=== PATIENT | female | born 1960 | race Caucasian/White ===

== ENCOUNTER 2018-02-22 08:49 | Emergency (ER) | payer OTHER ==
[2018-02-22 09:09] VITALS: BP 159/97
--- NOTE | 2018-02-22 09:24 | UC ---
Upper Extremity HPI - HPI Summary HPI Summary: This is Pennie hassan, documenting for attending David Herrera M.D. Pt is a 57 y/o F who presents to [facility] c/o right shoulder pain, located from her shoulder blade down to the elbow. Sx have been present since February 01 (3 weeks ago) after pulling down carry luggage that was in the above-head compartment on a plane on the day prior. Pt reports that she "let it jerk my arm " and that the pain has been present since that day. On February 12 (10 days ago) she was seen by [facility] where she did not have any imaging and was given Flexeril 5 mg (didn't help much) and Naproxen 500 mg ("takes the edge off "). Reports that her symptoms feel somewhat better today than they did on 02/12, though pain becomes much worse after work. 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 On triage, pain is mild ranked 1/10. - History of Current Complaint Chief Complaint: UCUpperExtremity Stated Complaint: SHOULDER COMPLAINT Time Seen by Provider: 02/22/18 09:17 Hx Obtained From: Patient Onset/Duration: Lasting Weeks - 3 weeks, Still Present Severity Currently: Mild Pain Intensity: 1 Pain Scale Used: 0-10 Numeric Location Of Pain: Is Discrete @ - R shoulder to right elbow Character: Burning Alleviating Factor(s): Other: - Medication Associated Signs And Symptoms: Positive: Negative - Allergies/Home Medications Allergies/Adverse Reactions: Allergies Allergy/AdvReac Type Severity Reaction Status Date / Time No Known Allergies Allergy Verified 02/22/18 09:10 PMH/Surg Hx/FS Hx/Imm Hx - Additional Past Medical History Additional PMH: NEGATIVE PMHx: HTN, CAD, DM - Surgical History Surgical History: None - Family History Known Family History: Positive: Hypertension Negative: Diabetes - Social History Alcohol Use: Rare Substance Use Type: None Smoking Status (MU): Never Smoked Tobacco Review of Systems Constitutional: Negative Skin: Negative Eyes: Negative ENT: Negative Respiratory: Negative Cardiovascular: Negative Gastrointestinal: Negative Genitourinary: Negative Motor: Negative Neurovascular: Negative Musculoskeletal: Arthralgia - R shoulder to right elbow pain Neurological: Negative Psychological: Negative All Other Systems Reviewed And Are Negative: Yes Physical Exam - Summary Physical Exam Summary: General: well-appearing, no pain distress Skin: warm, color reflects adequate perfusion, dry Head: normal Eyes: EOMI, HOMER ENT: normal Neck: supple, nontender Respiratory: CTA, breath sounds present Cardiovascular: RRR Musculoskeletal: Tender to palpation at the right shoulder joint with good pulses and no sensation deficits, hand, wrist, elbow, and shoulder strength 5/5 bilaterally, extension is 170 degrees bilaterally but with complaints of pain in the R shoulder, abduction is 160 degrees bilaterally with complaints of pain in the R shoulder, and internal rotation on the left was at T1, on the right side she was unable Neurological: sensory/motor intact, A&O x3 Psychological: affect/mood appropriate Triage Information Reviewed: Yes Vital Signs: Initial Vital Signs Temp 98.9 F 02/22/18 09:03 Pulse 86 02/22/18 09:03 Resp 12 02/22/18 09:03 BP 159/97 02/22/18 09:03 Pulse Ox 100 02/22/18 09:03 Vital Signs Reviewed: Yes Diagnostics - Radiology Shoulder XR Xray Interpretation: No Acute Changes - Normal radiograph of the right shoulder. If the patient's symptoms persist, follow-up imaging is recommended. Physician reviewed this report. Radiology Interpretation Completed By: Radiologist Upper Extremity Course/Dx - Course Course Of Treatment: Medications reviewed. Allergies noted. POSSIBLE ROTATOR CUFF INJURY. F/U SPORTS MEDICINE/ORTHOPEDICS; RECHECK SOONER IF WORSE. - Differential Dx/Diagnosis Provider Diagnoses: RIGHT SHOULDER STRAIN/PAIN Discharge - Sign-Out/Discharge Documenting (check all that apply): Patient Departure - Discharge - Discharge Plan Condition: Stable Disposition: HOME Prescriptions: Cyclobenzaprine (NF) [Cyclobenzaprine 5 MG (NF)] 7.5 mg PO TID PRN #30 tab PRN Reason: Pain traMADol TAB* [Ultram*] 50 mg PO Q6HR PRN #20 tab MDD 4 PRN Reason: Pain Patient Education Materials: Shoulder Sprain (ED) Referrals: Ignacio Kaufman [Medical Doctor] - [place] MD [Medical Doctor] - Muriel Antony MD [Primary Care Provider] - Additional Instructions: FOLLOW UP WITH YOUR PRIMARY CARE DOCTOR AND SPORTS MEDICINE. GET RECHECKED FOR ANY WORSENING OF YOUR CONDITION OR QUESTIONS OR CONCERNS. - Billing Disposition and Condition Condition: STABLE Disposition: Home
--- NOTE | 2018-02-22 10:26 | RAD ---
INDICATION: Right shoulder and arm pain since January 31, 2018 COMPARISON: None. TECHNIQUE: 4 views of the right shoulder were obtained. FINDINGS: The adequately corticated bones are in normal alignment. Joint spaces appear maintained. No fracture, dislocation or focal bony abnormality is seen. IMPRESSION: Normal radiograph of the right shoulder. If the patient's symptoms persist, follow-up imaging is recommended.
== END 2018-02-22 10:50 | disposition home or self-care (01) ==
LOC: UCEAST 08:49
DX: S46.911A Strain of unspecified muscle, fascia and tendon at shoulder and upper arm level, right arm, initial encounter (principal); X50.9XXA Other and unspecified overexertion or strenuous movements or postures, initial encounter; Y93.89 Activity, other specified; Y92.89 Other specified places as the place of occurrence of the external cause
CPT/HCPCS: 99212; G0463